=== PATIENT | male | born 1955 | race Caucasian/White ===

== ENCOUNTER 2017-02-17 08:05 | Emergency (ER) | payer SELFPAY ==
[~2017-02-17 08:05] MED LIST: ATIVAN1 MG PO; FLEXERIL5 MG PO; NAPROXEN500 MG PO; PERCOCET 10-321 EACH PO; VICODIN 5-5001 EACH PO
[2017-02-17] MEDS ORDERED: PRILOSEC OTC20 MG PO (08:18)
[2017-02-24] MEDS ORDERED: NORCO 10-325 T1 EACH PO (13:28)
== END 2017-02-17 09:50 | disposition home or self-care (01) ==
LOC: ED 08:05
PROC: 2W3AX1Z Immobilization of Right Upper Arm using Splint (ICD-10-PCS; principal; 2017-02-17)
DX: S46.211A Strain of muscle, fascia and tendon of other parts of biceps, right arm, initial encounter (principal); W17.89XA Other fall from one level to another, initial encounter; Z79.899 Other long term (current) drug therapy
CPT/HCPCS: 29105; 73080; 99283